=== PATIENT | male | born 1935 | race Caucasian/White ===

== ENCOUNTER → 2017-12-12 | Outpatient (CLI) | payer MEDICARE, OTHER ==
[~2017-12-12] MED LIST: ASPI325; ASPI325 PO; ATEN25; ATEN25 PO; ATOR10; ATOR20 PO; AZEL.05OP OD; Balance B-501 EACH; CALCIUM CITRAT1 EAC6 PO; CALMAGZIN; COENZYME Q10100 MG PO; COQ1050 MG PO; CQ 10; CYAN100; Calcium Citrat250 MG PO; DYMISTA NASAL S23 GM; EZET10; FAMO20 PO; FISH OIL-OMEGA1 EACH PO; FISH1000 PO; FOLI1 PO; GLUCHON; GLUCHON PO; GLUCOSAMINE-CH1 EAC3 PO; HYDCHL12.5; Hair, Skin & N1 EACH PO; Hydrochlorothia25 MG PO; MSM; MSM1000 MG PO; MULVITMINF PO; NEBI5 PO; NITR.4SL; OMEP20ER; OMEP20ER PO; POLY500; POLY500 PO; POTASSIUM; SPIHYD PO; TESTOSTER TD; TOCO400; VALS80; VALS80 PO
== END ==
LOC: PLD 09:55 → LAB SHORT 09:55
DX: D48.5 Neoplasm of uncertain behavior of skin (principal)
CPT/HCPCS: 88305

== ENCOUNTER 2018-06-17 12:08 | Emergency (ER) | payer MEDICARE, OTHER ==
[~2018-06-17] VITALS: Ht 175.3 cm; Wt 86.2 kg
[~2018-06-17 12:08] MED LIST changes: -Balance B-501 EACH; -CALCIUM CITRAT1 EAC6 PO; -COQ1050 MG PO; -DYMISTA NASAL S23 GM; -FAMO20 PO; -FISH OIL-OMEGA1 EACH PO; -FOLI1 PO; -GLUCOSAMINE-CH1 EAC3 PO; -Hair, Skin & N1 EACH PO; -MSM1000 MG PO; -POTASSIUM
[2018-06-17] MEDS ORDERED: Hair, Skin & N1 EACH PO (12:20)
[2018-06-17] MEDS ORDERED: COQ1050 MG PO (12:20)
[2018-06-17] MEDS ORDERED: GLUCOSAMINE-CH1 EAC3 PO (12:21)
[2018-06-17] MEDS ORDERED: CALCIUM CITRAT1 EAC6 PO (12:21)
[2018-06-17] MEDS ORDERED: FISH OIL-OMEGA1 EACH PO (12:22)
[2018-06-17] MEDS ORDERED: MSM1000 MG PO (12:22)
[2018-06-17] MEDS ORDERED: Balance B-501 EACH (12:23)
[2018-06-17] MEDS ORDERED: DYMISTA NASAL S23 GM (12:23)
[2018-06-17] MEDS ORDERED: FOLI1 PO (12:24)
[2018-06-17] MEDS ORDERED: POTASSIUM (12:25)
[2018-06-17] MEDS ORDERED: FAMO20 PO (12:25)
[2018-06-17 13:10] LABS: BASOPHILS ABSOLUTE AUTO 0.02 K/mm3 (0.00-0.23); BASOPHILS PERCENT AUTO 0 % (0-2); EOSINOPHILS ABSOLUTE AUTO 0.18 K/mm3 (0.00-0.68); EOSINOPHILS PERCENT AUTO 2 % (0-6); Hematocrit 43.8 % (37.0-53.0); Hemoglobin 14.4 g/dL (13.5-17.5); IMMATURE GRAN ABSOLUTE AUTO 0.03 K/mm3 (0.00-0.10); IMMATURE GRAN PERCENT AUTO 0 % (0-1); LYMPHOCYTES ABSOLUTE AUTO 1.15 K/mm3 (0.84-5.20); LYMPHOCYTES PERCENT AUTO 13 % (21-46); MONOCYTES ABSOLUTE AUTO 0.59 K/mm3 (0.16-1.47); MONOCYTES PERCENT AUTO 7 % (4-13); Mean Corpuscular HGB 31.2 pg (26.0-34.0); Mean Corpuscular HGB Conc 32.9 g/dL (31.5-36.5); Mean Corpuscular Volume 95 fL (80-100); Mean Platelet Volume 10.1 fL (9.1-12.4); NEUTROPHILS ABSOLUTE AUTO 7.17 K/mm3 (1.96-9.15); NEUTROPHILS PERCENT AUTO 78 % (41-73); Platelet Count 191 K/mm3 (150-400); RDW Standard Deviation 45.3 fL (35.1-46.3); Red Blood Cell Count 4.61 M/mm3 (4.30-5.90); White Blood Cell Count 9.14 K/mm3 (4.00-11.30)
[2018-06-17 13:39] LABS: Albumin, Blood 3.5 g/dL (3.4-5.0); Bilirubin, Total 0.8 mg/dL (0.1-1.0); Bun/Creatinine Ratio 21.2 (12.0-20.0); Calcium, Blood 8.7 mg/dL (8.5-10.1); Creatinine, Blood 1.46 mg/dL (0.60-1.20); Globulin, Blood 3.6 g/dL (2.2-4.0); Potassium, Blood 4.1 mmol/L (3.5-5.5); Total Protein, Blood 7.1 g/dL (6.4-8.2); Troponin I 0.037 ng/mL (0.000-0.040)
== END 2018-06-17 15:17 | disposition home or self-care (01) ==
LOC: ER 12:08
PROVIDERS: Physician Assistant
DX: R55 Syncope and collapse (principal); I10 Essential (primary) hypertension; Z79.899 Other long term (current) drug therapy
CPT/HCPCS: 80053; 84484; 85025; 93005; 93010; 96360; 96361; 99285-25; J7030

== ENCOUNTER 2019-06-27 12:01 | Day surgery (SDC) | payer MEDICARE, OTHER ==
[~2019-06-27] VITALS: Ht 175.3 cm; Wt 85.0 kg
[~2019-06-27 12:01] MED LIST changes: +Balance B-501 EACH; +CALCIUM CITRAT1 EAC6 PO; +COQ1050 MG PO; +DYMISTA NASAL S23 GM; +FAMO20 PO; +FISH OIL-OMEGA1 EACH PO; +FOLI1 PO; +GLUCOSAMINE-CH1 EAC3 PO; +Hair, Skin & N1 EACH PO; +MSM1000 MG PO; +OMEPRAZOLE20 MG PO; +POTASSIUM
== END 2019-06-27 15:15 | disposition home or self-care (01) ==
LOC: ORSCSDS 12:01
PROVIDERS: Student in an Organized Health Care Education/Training Program
PROC: 0DB58ZX Excision of Esophagus, Via Natural or Artificial Opening Endoscopic, Diagnostic (ICD-10-PCS; principal; 2019-06-27 13:30)
DX: R13.10 Dysphagia, unspecified (principal); K21.9 Gastro-esophageal reflux disease without esophagitis; K57.10 Diverticulosis of small intestine without perforation or abscess without bleeding; K44.9 Diaphragmatic hernia without obstruction or gangrene; K64.8 Other hemorrhoids; I10 Essential (primary) hypertension; G47.33 Obstructive sleep apnea (adult) (pediatric); I25.2 Old myocardial infarction; I25.10 Atherosclerotic heart disease of native coronary artery without angina pectoris; J45.909 Unspecified asthma, uncomplicated; E66.9 Obesity, unspecified; Z79.899 Other long term (current) drug therapy
CPT/HCPCS: 88305; J2704; J7120

== ENCOUNTER 2019-08-16 08:07 | Inpatient (IN) | payer MEDICARE, OTHER ==
[~2019-08-16] VITALS: Ht 175.3 cm; Wt 84.7 kg
[2019-08-19] MEDS ORDERED: MSM (08:25)
[2019-08-19] MEDS ORDERED: MSM PO (08:25)
[2019-08-19] MEDS ORDERED: LOSA25 PO (08:27)
[2019-08-19] MEDS ORDERED: HYDCHL25 PO (08:28)
--- NOTE | 2019-08-21 09:39 | NUR ---
Ambulatory in Day Surgery. History, Chart, Medications and Allergies reviewed before start of procedure.Lungs clear T/O to Auscultation. Patient confirms NPO status and agrees with scheduled surgery. Patient reports completing Chlorhexadine shower X2 prior to admission to hospital.Surgical site prepped with 2% Chlorhexidine cloth wipe.
--- NOTE | 2019-08-21 18:41 | NUR ---
SHIFT SUMMARY PT HAD PROCEDURE TODAY. PT TOLERATED SNACKS. PT DRINKING WELL. PT NOT VOIDED YET SINCE PROCEDURE. PT FAMILY IN ROOM EARLIER. PT REPORTS PAIN DOING MUCH BETTER AFTER PAIN MEDS AND THERAPY. PT USING [employer] LIGHT APPR.
[2019-08-22 03:56] LABS: BASOPHILS ABSOLUTE AUTO 0.01 K/mm3 (0.00-0.23); BASOPHILS PERCENT AUTO 0 % (0-2); EOSINOPHILS ABSOLUTE AUTO 0.01 K/mm3 (0.00-0.68); EOSINOPHILS PERCENT AUTO 0 % (0-6); Hematocrit 36.4 % (37.0-53.0); Hemoglobin 11.8 g/dL (13.5-17.5); IMMATURE GRAN ABSOLUTE AUTO 0.04 K/mm3 (0.00-0.10); IMMATURE GRAN PERCENT AUTO 0 % (0-1); LYMPHOCYTES ABSOLUTE AUTO 0.59 K/mm3 (0.84-5.20); LYMPHOCYTES PERCENT AUTO 6 % (21-46); MONOCYTES ABSOLUTE AUTO 0.71 K/mm3 (0.16-1.47); MONOCYTES PERCENT AUTO 7 % (4-13); Mean Corpuscular HGB 31.8 pg (26.0-34.0); Mean Corpuscular HGB Conc 32.4 g/dL (31.5-36.5); Mean Corpuscular Volume 98 fL (80-100); Mean Platelet Volume 9.9 fL (9.1-12.4); NEUTROPHILS ABSOLUTE AUTO 8.44 K/mm3 (1.96-9.15); NEUTROPHILS PERCENT AUTO 86 % (41-73); Platelet Count 175 K/mm3 (150-400); RDW Coefficient Variation 12.7 % (11.7-14.2); RDW Standard Deviation 45.8 fL (35.1-46.3); Red Blood Cell Count 3.71 M/mm3 (4.30-5.90)
[2019-08-22 04:13] LABS: Magnesium, Blood 1.8 mg/dL (1.6-2.4)
[2019-08-22 04:14] LABS: Anion Gap 6 mmol/L (6-16); Blood Urea Nitrogen 21 mg/dL (8-24); Bun/Creatinine Ratio 19.6 (12.0-20.0); CO2, Blood 29 mmol/L (21-32); Calcium, Blood 8.8 mg/dL (8.5-10.1); Chloride, Blood 103 mmol/L (98-108); Creatinine, Blood 1.07 mg/dL (0.60-1.20); Glomerular Filtration Rate >60 (60-); Glucose, Blood 130 mg/dL (70-99); Potassium, Blood 4.1 mmol/L (3.5-5.5); Sodium, Blood 138 mmol/L (136-145)
--- NOTE | 2019-08-22 04:40 | NUR ---
SHIFT SUMMARY PT REQUESTED TO SLEEP IN RECLINER TONIGHT AND HAS SLEPT MUCH OF THE NIGHT. PAIN MANAGED WITH PO PAIN MED PER ORDER. DRESSING TO L HIP CDI. ASSISTED TO BATHROOM WITH STANDBY ASSIST. ASSISTED WITH ADL'S PRN.
[2019-08-22] MEDS ORDERED: ROXICODONE5 MG PO (10:46)
[2019-08-22] MEDS ORDERED: ASPI325EC PO (10:46)
[2019-08-22] MEDS ORDERED: PROM25 PO (10:47)
--- NOTE | 2019-08-22 12:50 | NUR ---
PATIENT D/C'D HOME WITH AT THIS TIME; BOTH STATE UNDERSTANDING OF MEDS, WOUND CARE, ACTIVITY, OP PT, F/U APPT, ETC. PATIENT STATES PAIN WELL CONTROLLED WITH PO PAIN MED. VOIDING. TOLERATING PO. NO ACUTE CHANGES OR C/O AT THIS TIME.
== END 2019-08-22 12:57 | disposition home or self-care (01) | DRG 470 ==
LOC: SURS 08-21 09:09 → PRE IP 08-21 10:45 → SURS 08-21 15:09
PROVIDERS: ADMIT Orthopaedic Surgery
PROC: 0SRB0JA Replacement of Left Hip Joint with Synthetic Substitute, Uncemented, Open Approach (ICD-10-PCS; principal; 2019-08-21 10:45)
DX: M16.12 Unilateral primary osteoarthritis, left hip (principal); I10 Essential (primary) hypertension; I25.10 Atherosclerotic heart disease of native coronary artery without angina pectoris; K21.9 Gastro-esophageal reflux disease without esophagitis; E78.5 Hyperlipidemia, unspecified; I25.2 Old myocardial infarction; Z86.73 Personal history of transient ischemic attack (TIA), and cerebral infarction without residual deficits
CPT/HCPCS: 36415; 72170; 80048; 83735; 85025; 88300; 94762; 97110; 97116; 97162; 97165; 97530; 97535; C1713; C1776; J0171; J0690; J0735; J1100; J1885; J2370; J2405; J2704; J2795; J3010; J7120

== ENCOUNTER → 2020-04-10 | Outpatient (CLI) | payer MEDICARE, OTHER ==
[~2020-04-10] MED LIST changes: +ASPI325EC PO; +HYDCHL25 PO; +LOSA25 PO; +MSM PO; +PROM25 PO; +ROXICODONE5 MG PO
[2020-04-10 10:19] LABS: BASOPHILS ABSOLUTE AUTO 0.02 K/mm3 (0.00-0.23); BASOPHILS PERCENT AUTO 0 % (0-2); EOSINOPHILS ABSOLUTE AUTO 0.22 K/mm3 (0.00-0.68); EOSINOPHILS PERCENT AUTO 2 % (0-6); Hematocrit 40.2 % (37.0-53.0); Hemoglobin 13.5 g/dL (13.5-17.5); IMMATURE GRAN ABSOLUTE AUTO 0.02 K/mm3 (0.00-0.10); IMMATURE GRAN PERCENT AUTO 0 % (0-1); LYMPHOCYTES PERCENT AUTO 18 % (21-46); MONOCYTES ABSOLUTE AUTO 0.68 K/mm3 (0.16-1.47); MONOCYTES PERCENT AUTO 8 % (4-13); Mean Corpuscular HGB 32.2 pg (26.0-34.0); Mean Corpuscular HGB Conc 33.6 g/dL (31.5-36.5); Mean Corpuscular Volume 96 fL (80-100); Mean Platelet Volume 9.8 fL (9.1-12.4); NEUTROPHILS ABSOLUTE AUTO 6.52 K/mm3 (1.96-9.15); NEUTROPHILS PERCENT AUTO 72 % (41-73); Platelet Count 199 K/mm3 (150-400); RDW Coefficient Variation 12.7 % (11.7-14.2); RDW Standard Deviation 44.5 fL (35.1-46.3); Red Blood Cell Count 4.19 M/mm3 (4.30-5.90); White Blood Cell Count 9.06 K/mm3 (4.00-11.30)
[2020-04-10 10:28] LABS: Albumin, Blood 3.8 g/dL (3.4-5.0); Albumin/Globulin Ratio 1.1 (0.8-1.8); Bilirubin, Total 0.5 mg/dL (0.1-1.0); Bun/Creatinine Ratio 18.3 (12.0-20.0); Calcium, Blood 9.1 mg/dL (8.5-10.1); Creatinine, Blood 1.31 mg/dL (0.60-1.20); Globulin, Blood 3.6 g/dL (2.2-4.0); Potassium, Blood 3.9 mmol/L (3.5-5.5); Total Protein, Blood 7.4 g/dL (6.4-8.2)
== END | disposition home or self-care (01) ==
LOC: LAB SHORT 10:14 → LAB EV 10:14
PROVIDERS: General Practice
DX: M31.6 Other giant cell arteritis (principal)
CPT/HCPCS: 80053; 85025; 85651

== ENCOUNTER → 2021-07-05 | Outpatient (CLI) | payer MEDICARE, OTHER ==
[2021-07-05 15:44] LABS: BASOPHILS ABSOLUTE AUTO 0.03 K/mm3 (0.00-0.23); BASOPHILS PERCENT AUTO 0 % (0-2); EOSINOPHILS ABSOLUTE AUTO 0.14 K/mm3 (0.00-0.68); EOSINOPHILS PERCENT AUTO 2 % (0-6); Hematocrit 41.7 % (37.0-53.0); Hemoglobin 13.7 g/dL (13.5-17.5); IMMATURE GRAN ABSOLUTE AUTO 0.02 K/mm3 (0.00-0.10); IMMATURE GRAN PERCENT AUTO 0 % (0-1); LYMPHOCYTES ABSOLUTE AUTO 1.03 K/mm3 (0.84-5.20); LYMPHOCYTES PERCENT AUTO 13 % (21-46); MONOCYTES PERCENT AUTO 7 % (4-13); Mean Corpuscular HGB Conc 32.9 g/dL (31.5-36.5); Mean Corpuscular Volume 97 fL (80-100); Mean Platelet Volume 9.9 fL (9.1-12.4); NEUTROPHILS ABSOLUTE AUTO 5.94 K/mm3 (1.96-9.15); NEUTROPHILS PERCENT AUTO 78 % (41-73); Platelet Count 239 K/mm3 (150-400); RDW Coefficient Variation 13.1 % (11.7-14.2); RDW Standard Deviation 46.4 fL (35.1-46.3); Red Blood Cell Count 4.28 M/mm3 (4.30-5.90); White Blood Cell Count 7.66 K/mm3 (4.00-11.30)
[2021-07-05 16:36] LABS: Alanine Aminotransfer (ALT/SGP 69 U/L (12-78); Albumin, Blood 3.8 g/dL (3.4-5.0); Alk Phos 170 U/L (50-136); Anion Gap 5 mmol/L (6-16); Aspartate Aminotrans (AST/SGOT 27 U/L (12-37); Bilirubin, Total 0.6 mg/dL (0.1-1.0); Blood Urea Nitrogen 22 mg/dL (8-24); Bun/Creatinine Ratio 21.4 (12.0-20.0); CO2, Blood 28 mmol/L (21-32); Calcium, Blood 9.5 mg/dL (8.5-10.1); Chloride, Blood 109 mmol/L (98-108); Creatinine, Blood 1.03 mg/dL (0.60-1.20); Globulin, Blood 3.7 g/dL (2.2-4.0); Glomerular Filtration Rate >60 (60-); Glucose, Blood 125 mg/dL (70-99); Potassium, Blood 4.2 mmol/L (3.5-5.5); Sodium, Blood 142 mmol/L (136-145); Total Protein, Blood 7.5 g/dL (6.4-8.2)
== END | disposition home or self-care (01) ==
LOC: LAB 15:38 → LAB SHORT 15:38
PROVIDERS: Physician Assistant
DX: R07.9 Chest pain, unspecified (principal); R60.9 Edema, unspecified
CPT/HCPCS: 80053; 83880; 84484; 85025

== ENCOUNTER → 2021-07-06 | Outpatient (CLI) | payer MEDICARE, OTHER | END | disposition home or self-care (01) | LOC: LAB SHORT 10:55 → LAB 10:55 | DX: R06.02 Shortness of breath (principal) | CPT/HCPCS: 83880; 84484 ==

== ENCOUNTER → 2021-09-01 | Outpatient (CLI) | payer MEDICARE, OTHER | END | disposition home or self-care (01) | LOC: LAB 14:12 → LAB SHORT 14:12 | DX: D48.5 Neoplasm of uncertain behavior of skin (principal) | CPT/HCPCS: 88305 ==

== ENCOUNTER 2022-10-01 15:11 | Emergency (ER) | payer MEDICARE, OTHER ==
[~2022-10-01] VITALS: Ht 177.8 cm; Wt 81.7 kg
[2022-10-01 15:32] LABS: BASOPHILS ABSOLUTE AUTO 0.03 K/mm3 (0.00-0.23); BASOPHILS PERCENT AUTO 0 % (0-2); EOSINOPHILS ABSOLUTE AUTO 0.05 K/mm3 (0.00-0.68); EOSINOPHILS PERCENT AUTO 1 % (0-6); Hematocrit 40.1 % (37.0-53.0); Hemoglobin 13.8 g/dL (13.5-17.5); IMMATURE GRAN ABSOLUTE AUTO 0.05 K/mm3 (0.00-0.10); IMMATURE GRAN PERCENT AUTO 1 % (0-1); LYMPHOCYTES ABSOLUTE AUTO 0.82 K/mm3 (0.84-5.20); LYMPHOCYTES PERCENT AUTO 7 % (21-46); MONOCYTES ABSOLUTE AUTO 0.74 K/mm3 (0.16-1.47); MONOCYTES PERCENT AUTO 7 % (4-13); Mean Corpuscular HGB 32.9 pg (26.0-34.0); Mean Corpuscular HGB Conc 34.4 g/dL (31.5-36.5); Mean Corpuscular Volume 96 fL (80-100); Mean Platelet Volume 9.9 fL (9.1-12.4); NEUTROPHILS ABSOLUTE AUTO 9.33 K/mm3 (1.96-9.15); NEUTROPHILS PERCENT AUTO 85 % (41-73); Platelet Count 192 K/mm3 (150-400); RDW Coefficient Variation 12.5 % (11.7-14.2); RDW Standard Deviation 43.8 fL (35.1-46.3); Red Blood Cell Count 4.19 M/mm3 (4.30-5.90); White Blood Cell Count 11.02 K/mm3 (4.00-11.30)
[2022-10-01 16:01] LABS: Albumin, Blood 3.5 g/dL (3.4-5.0); Bilirubin, Total 1.3 mg/dL (0.1-1.0); Bun/Creatinine Ratio 28.4 (12.0-20.0); Calcium, Blood 9.5 mg/dL (8.5-10.1); Creatinine, Blood 1.09 mg/dL (0.60-1.20); Globulin, Blood 3.6 g/dL (2.2-4.0); Potassium, Blood 4.2 mmol/L (3.5-5.5); Total Protein, Blood 7.1 g/dL (6.4-8.2)
== END 2022-10-01 19:15 | disposition home or self-care (01) ==
LOC: ER 15:11
PROVIDERS: Student in an Organized Health Care Education/Training Program
DX: R55 Syncope and collapse (principal); I10 Essential (primary) hypertension; Z79.899 Other long term (current) drug therapy; Z79.82 Long term (current) use of aspirin
CPT/HCPCS: 36415; 70450; 80053; 85025; 93005; 93010; J7030

== ENCOUNTER 2023-08-15 14:50 | Observation (INO) | payer MEDICARE, OTHER ==
[~2023-08-15] VITALS: Ht 177.8 cm; Wt 76.6 kg
[~2023-08-15 14:50] MED LIST changes: +METO25ER PO; +Penicillin V P500 MG PO
[2023-08-15 15:37] LABS: BASOPHILS ABSOLUTE AUTO 0.02 K/mm3 (0.00-0.23); BASOPHILS PERCENT AUTO 0 % (0-2); EOSINOPHILS ABSOLUTE AUTO 0.16 K/mm3 (0.00-0.68); EOSINOPHILS PERCENT AUTO 3 % (0-6); Hematocrit 38.4 % (37.0-53.0); IMMATURE GRAN ABSOLUTE AUTO 0.02 K/mm3 (0.00-0.10); IMMATURE GRAN PERCENT AUTO 0 % (0-1); LYMPHOCYTES ABSOLUTE AUTO 1.14 K/mm3 (0.84-5.20); LYMPHOCYTES PERCENT AUTO 19 % (21-46); MONOCYTES PERCENT AUTO 8 % (4-13); Mean Corpuscular HGB 32.4 pg (26.0-34.0); Mean Corpuscular HGB Conc 33.9 g/dL (31.5-36.5); Mean Corpuscular Volume 96 fL (80-100); Mean Platelet Volume 10.1 fL (9.1-12.4); NEUTROPHILS PERCENT AUTO 70 % (41-73); Platelet Count 185 K/mm3 (150-400); RDW Coefficient Variation 12.5 % (11.7-14.2); RDW Standard Deviation 44.6 fL (35.1-46.3); Red Blood Cell Count 4.01 M/mm3 (4.30-5.90); White Blood Cell Count 6.04 K/mm3 (4.00-11.30)
[2023-08-15 15:59] LABS: Albumin, Blood 3.5 g/dL (3.4-5.0); Albumin/Globulin Ratio 0.9 (0.8-1.8); Bilirubin, Total 0.3 mg/dL (0.1-1.0); Bun/Creatinine Ratio 23.1 (12.0-20.0); Calcium, Blood 9.3 mg/dL (8.5-10.1); Creatinine, Blood 0.95 mg/dL (0.60-1.20); Globulin, Blood 3.7 g/dL (2.2-4.0); Potassium, Blood 4.2 mmol/L (3.5-5.5); Total Protein, Blood 7.2 g/dL (6.4-8.2)
[2023-08-16 00:02] LABS: International Normalized Ratio 1.09; Prothrombin Time Results 11.4 Sec (9.7-11.5)
[2023-08-16 00:11] LABS: CHOL/HDL RATIO 2.2; Cholesterol 108 mg/dL (50-200); HDL Cholesterol 50 mg/dL (>39); Low Density Lipoprotein Chol 50 mg/dL (0-110); Triglycerides 38 mg/dL (30-160); Very Low Density Lipoprot Chol 7 mg/dL (6-32)
[2023-08-16 01:08] VITALS: BP 164/91
[2023-08-16 05:07] VITALS: BP 160/79
[2023-08-16 05:40] LABS: BASOPHILS ABSOLUTE AUTO 0.01 K/mm3 (0.00-0.23); BASOPHILS PERCENT AUTO 0 % (0-2); EOSINOPHILS ABSOLUTE AUTO 0.19 K/mm3 (0.00-0.68); EOSINOPHILS PERCENT AUTO 4 % (0-6); Hematocrit 36.9 % (37.0-53.0); Hemoglobin 12.4 g/dL (13.5-17.5); IMMATURE GRAN ABSOLUTE AUTO 0.02 K/mm3 (0.00-0.10); IMMATURE GRAN PERCENT AUTO 0 % (0-1); LYMPHOCYTES ABSOLUTE AUTO 1.13 K/mm3 (0.84-5.20); LYMPHOCYTES PERCENT AUTO 22 % (21-46); MONOCYTES ABSOLUTE AUTO 0.48 K/mm3 (0.16-1.47); MONOCYTES PERCENT AUTO 9 % (4-13); Mean Corpuscular HGB 32.5 pg (26.0-34.0); Mean Corpuscular HGB Conc 33.6 g/dL (31.5-36.5); Mean Corpuscular Volume 97 fL (80-100); Mean Platelet Volume 10.1 fL (9.1-12.4); NEUTROPHILS ABSOLUTE AUTO 3.32 K/mm3 (1.96-9.15); NEUTROPHILS PERCENT AUTO 65 % (41-73); Platelet Count 160 K/mm3 (150-400); RDW Coefficient Variation 12.5 % (11.7-14.2); RDW Standard Deviation 44.4 fL (35.1-46.3); Red Blood Cell Count 3.82 M/mm3 (4.30-5.90); White Blood Cell Count 5.15 K/mm3 (4.00-11.30)
--- NOTE | 2023-08-16 05:57 | NUR ---
SHIFT SUMMARY PT IS A&O4, UP WITH 1 AND CANE TO BR USING URINAL, RA, VSS, NPO, NO COMPLAINTS OF PAIN SINCE ADMISSION THIS AM, MRI TODAY, CONTINUE POC
[2023-08-16 06:26] LABS: Albumin, Blood 3.1 g/dL (3.4-5.0); Albumin/Globulin Ratio 0.9 (0.8-1.8); Bilirubin, Total 0.7 mg/dL (0.1-1.0); Bun/Creatinine Ratio 18.6 (12.0-20.0); Calcium, Blood 9.2 mg/dL (8.5-10.1); Creatinine, Blood 0.97 mg/dL (0.60-1.20); Globulin, Blood 3.4 g/dL (2.2-4.0); Potassium, Blood 3.8 mmol/L (3.5-5.5); Total Protein, Blood 6.5 g/dL (6.4-8.2)
[2023-08-16 07:53] VITALS: BP 154/74
--- NOTE | 2023-08-16 13:17 | NUR ---
Spiritual care visit conducted. Patient is sitting on a chair and his dtr, Charley is present in the room. 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 He becomes tearful at the discussion about the loss of his ODL and possible sell of his home. We discuss bereavement and the loss of independence and the constraints of new physical limitations. 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 I provide pastoral disability counselor, theological insights and prayer. Patient responds well to the interventions and showed signs of greater hope fo the future that looks beyond the strength and mobility of the body.
[2023-08-16 16:00] VITALS: BP 118/97
[2023-08-16] MEDS ORDERED: ATORVASTATIN CA80 M1 PO (16:22)
[2023-08-16] MEDS ORDERED: METO50ER PO (16:23)
[2023-08-16] MEDS ORDERED: OMEP20ER PO (16:24)
[2023-08-16] MEDS ORDERED: Primidone50 MG PO (16:25)
[2023-08-16] MEDS ORDERED: ASPI81CH PO (17:49)
[2023-08-16] MEDS ORDERED: CLOP75 PO (18:16)
--- NOTE | 2023-08-16 19:43 | NUR ---
SHIFT SUMMARY AND DISCHARGE PATIENT ALERT AND ORIENTED PATIENT NOTED TO HAVE TREMORS. PATIENT STATES THAT HE HAS ESSENTIAL TREMORS. 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 PATIENT HAS NOT SEEN A NEUROLOGIST IN [place] SOME TIME. MRI COMPLETE. PATIENT WORKED WITH SPEECH, PT, AND OT. DAUGHTER PRESENT FOR MOST OF DAY. CONCERNS RELATED TO PATIENT CURRENT LIVING SITUATION. PATIENT STATES HE IS ON A WAITING LIST FOR [facility]. PATIENT DOES NOT WANT TO MOVE CLOSER TO DAUGHTER. PATIENT DISCHARGED WITH HOME HEALTH TO FOLLOW UP.
== END 2023-08-16 18:47 | disposition home health service (06) ==
LOC: ER 14:50 → MEDS 14:51
PROVIDERS: Family Medicine; Physician Assistant; ADMIT Student in an Organized Health Care Education/Training Program
DX: I63.9 Cerebral infarction, unspecified (principal); G81.91 Hemiplegia, unspecified affecting right dominant side; R29.810 Facial weakness; I10 Essential (primary) hypertension; G25.0 Essential tremor; J44.9 Chronic obstructive pulmonary disease, unspecified; G47.33 Obstructive sleep apnea (adult) (pediatric); K76.0 Fatty (change of) liver, not elsewhere classified; R41.81 Age-related cognitive decline; I25.2 Old myocardial infarction
CPT/HCPCS: 36415; 70450; 70549; 70551; 80053; 80061; 82947; 83036; 84443; 85025; 85610; 85730; 92610; 93005; 93010; 93306; 96372; 97116; 97161; 97165; 97530; 97535; 99285-25; A9270; A9579; G0008; G0378; J1650; Q2036